=== PATIENT | male | born 1985 | race Caucasian/White ===

== ENCOUNTER 2016-07-21 23:36 | Emergency (ER) | payer OTHER ==
[~2016-07-21] VITALS: Ht 182.9 cm; Wt 117.9 kg
[2016-07-22] MEDS ORDERED: PROAIR HFA8.5 GM IH (00:07)
[2016-07-22] MEDS ORDERED: AMOXICILLIN875 MG PO (00:07)
[2016-07-22 00:17] VITALS: BP 146/92
== END 2016-07-22 00:40 | disposition home or self-care (01) ==
LOC: EME 23:36
DX: J06.9 Acute upper respiratory infection, unspecified (principal); J45.909 Unspecified asthma, uncomplicated; R42 Dizziness and giddiness
CPT/HCPCS: 99281; 99284; J8540